=== PATIENT | female | born 1950 | race Caucasian/White ===

== ENCOUNTER 2018-04-08 15:20 | Emergency (ER) | payer MEDICAID ==
[~2018-04-08 15:20] MED LIST: PRI20 PO
[2018-04-08 15:28] VITALS: Ht 157.5 cm
[2018-04-08 17:09] LABS: CALCIUM 9.3 mg/dL (8.5-10.1); CARBON DIOXIDE 27.8 mmol/L (21-32); CHLORIDE SERUM 103 mmol/L (98-107); CREATININE SERUM 0.7 mg/dL (0.6-1.0); GFR1 > 60 mL/min; GLUCOSE SERUM 100 mg/dL (74-106); POTASSIUM SERUM 4.2 mmol/L (3.5-5.1); SODIUM SERUM 140 mmol/L (136-145)
[2018-04-08 17:13] LABS: ALBUMIN 4.1 g/dL (3.4-5.0); ALKALINE PHOSPHATASE 100 U/L (46-116); ALT/SGPT 28 U/L (14-59); AST/SGOT 24 U/L (15-37); BASOPHIL % 0.3 % (0-2); BILIRUBIN TOTAL 0.7 mg/dL (0.20-1.00); LIPASE 75 IU/L (73-393); PLATELET COUNT 279 x10^3mcL (130-400)
[2018-04-08 17:14] LABS: RED CELL DISTRIBUTION WIDTH 16.5 % (11.5-14.5); TOTAL PROTEIN, SERUM 8.4 g/dL (6.4-8.2)
[2018-04-08 20:08] VITALS: BP 116/74
== END 2018-04-08 20:08 | disposition home or self-care (01) ==
LOC: ED 15:20
PROVIDERS: Emergency Medicine
DX: K80.20 Calculus of gallbladder without cholecystitis without obstruction (principal); N13.30 Unspecified hydronephrosis; I10 Essential (primary) hypertension; Z87.442 Personal history of urinary calculi; Z90.89 Acquired absence of other organs
CPT/HCPCS: J1885; J7030; Q0092